=== PATIENT | female | born 1975 | race Caucasian/White ===

== ENCOUNTER 2020-08-04 12:56 | Emergency (ER) | payer BC, OTHER ==
[~2020-08-04 12:56] MED LIST: AUGMENTIN TAB875 MG PO; NORCO 7.5-3251 EACH PO; NORVASC5 MG PO
[2020-08-04] MEDS ORDERED: AUGMENTIN 875-1 EACH PO (15:31)
== END 2020-08-04 16:45 | disposition home or self-care (01) ==
LOC: ER1 12:56
DX: S61.211A Laceration without foreign body of left index finger without damage to nail, initial encounter (principal); I10 Essential (primary) hypertension; W26.0XXA Contact with knife, initial encounter; Y92.009 Unspecified place in unspecified non-institutional (private) residence as the place of occurrence of the external cause
CPT/HCPCS: 12002; 73140; 99283; J2001

== ENCOUNTER → 2020-10-30 | Outpatient (CLI) | payer BC, OTHER ==
[~2020-10-30] MED LIST changes: +AUGMENTIN 875-1 EACH PO
== END ==
LOC: RAD 09:42
DX: R06.00 Dyspnea, unspecified (principal); R94.2 Abnormal results of pulmonary function studies; J45.909 Unspecified asthma, uncomplicated; H10.45 Other chronic allergic conjunctivitis
CPT/HCPCS: 71046

== ENCOUNTER 2021-10-26 16:49 | Emergency (ER) | payer BC | END 2021-10-26 17:40 | disposition home or self-care (01) | LOC: ER1 16:49 | DX: M54.41 Lumbago with sciatica, right side (principal); I10 Essential (primary) hypertension; J45.909 Unspecified asthma, uncomplicated | CPT/HCPCS: 96372; 99283; J2270 ==

== ENCOUNTER → 2021-12-06 | Outpatient (CLI) | payer BC | LOC: ECHO 10:03 | DX: R60.9 Edema, unspecified (principal) | CPT/HCPCS: ECHO; 93306 ==